=== PATIENT | female | born 1945 | race Caucasian/White ===

== ENCOUNTER 2025-04-24 11:52 | Observation (INO) | payer MEDICARE, OTHER ==
[2025-04-24 13:59] VITALS: BMI 24.0
[2025-04-24 14:44] LABS: #Basophils 0.1 thou/uL (0.0-0.2); #Eosinophils 0.1 thou/uL (0.0-0.7); #Lymphocytes 0.7 thou/uL (1.20-3.40); #Monocytes 0.4 thou/uL (0.11-0.59); #Neutrophils 4.3 thou/uL (1.40-6.50); %Basophils 1.7 % (0.0-1.0); %Eosinophils 1.9 % (0.0-10.0); %Lymphocytes 11.9 % (21.0-51.0); %Monocytes 7.7 % (0.0-10.0); %Neutrophils 76.7 % (42.0-75.0); Hematocrit 18.9 % (36.0-47.0); Hemoglobin 5.7 g/dL (12.0-16.0); Mean Corpuscular Hemoglobin 26.0 pg (27.0-31.0); Mean Corpuscular Volume 86.3 fl (78.0-98.0); Platelet Count 234 10x3/uL (130-400); Red Blood Cell (RBC) Count 2.19 mill/uL (4.20-5.40); White Blood Cell (WBC) Count 5.6 10x3/uL (4.8-10.8)
[2025-04-24 15:01] LABS: ALT (SGPT) Less than 7 U/L (Less than 34); AST (SGOT) 25 U/L (11-34); Albumin 3.4 g/dL (3.1-4.5); Alkaline Phosphatase 217 U/L (40-110); Anion Gap 18 mmol/L (10-20); BUN (Urea Nitrogen) 27 mg/dL (9.8-20.1); Bilirubin, Total 0.9 mg/dL (0.3-1.2); Calc. Creatinine Clearance 55 mL/min (70-130); Calcium 8.5 mg/dL (7.8-10.44); Carbon Dioxide 26 mmol/L (23-31); Chloride 102 mmol/L (98-107); Globulin 3.1 g/dL (2.4-3.5); Glucose 105 mg/dL (83-110); Potassium 2.8 mmol/L (3.5-5.1); Sodium 143 mmol/L (136-145)
[2025-04-24] MEDS ORDERED: Benzonatate 100 MG CAP PO PRN (15:15)
[2025-04-24] MEDS ORDERED: Nitroglycerin 0.4 MG TAB (25 Tab Bottle) SL PRN (15:15)
[2025-04-24] MEDS ORDERED: Senokot 8.6 MG TAB PO PRN (15:15)
[2025-04-24] MEDS ORDERED: Acetaminophen/Codeine 30-300mg Tablet PO PRN (15:22)
[2025-04-24] MEDS ORDERED: Calcium Carbonate 500 MG ChewTAB PO PRN (15:24)
[2025-04-24] MEDS ORDERED: Acetaminophen 325 MG TAB PO PRN (15:24)
[2025-04-24] MEDS: Ferrous Sulfate 325 MG TAB PO SCH ×2 (17:11→20:39)
[2025-04-24] MEDS: Acetaminophen 325 MG TAB PO SCH (17:58)
[2025-04-24] MEDS: diphenhydrAMINE 25 MG CAP PO SCH (17:59)
[2025-04-24] MEDS: Gabapentin 300 MG CAP PO SCH (20:32)
[2025-04-24] MEDS: Apixaban 5 MG TAB PO SCH (20:35)
[2025-04-24] MEDS: Furosemide 40 MG (4 mL) VIAL SLOW IVP SCH (22:40)
[2025-04-25 04:42] LABS: Hematocrit 25.4 % (36.0-47.0); Hemoglobin 8.3 g/dL (12.0-16.0)
[2025-04-25 07:20] LABS: Anion Gap 17 mmol/L (10-20); BUN (Urea Nitrogen) 25 mg/dL (9.8-20.1); Calc. Creatinine Clearance 54 mL/min (70-130); Calcium 8.1 mg/dL (7.8-10.44); Carbon Dioxide 27 mmol/L (23-31); Chloride 103 mmol/L (98-107); Glucose 125 mg/dL (83-110); Potassium 2.7 mmol/L (3.5-5.1); Sodium 144 mmol/L (136-145)
[2025-04-25 07:41] VITALS: TEMP 98.1
[2025-04-25] MEDS: Folic Acid 1 MG TAB PO SCH (09:49)
[2025-04-25] MEDS: Sertraline 100 MG TAB PO SCH (09:50)
[2025-04-25] MEDS: Pantoprazole 40 MG DR.TAB PO SCH (09:50)
[2025-04-25] MEDS: Torsemide 20 MG TAB PO SCH (09:52)
[2025-04-25] MEDS: Vancomycin HCl 750 MG in Sodium Chloride 0.9% 250 ML 250 ML IVPB SCH (10:57)
[2025-04-25 11:36] LABS: Iron 29 ug/dL (50-170); Iron Binding Capacity, Total 265 mcg/dL (265-497)
[2025-04-25 14:42] VITALS: BP 123/76
[2025-04-29] MEDS ORDERED: PNEUMOC 20-VAL CONJ-DIP CRM/PF 0.5 ML SYRINGE IM ONE (09:00)
== END 2025-04-25 13:40 ==
LOC: BURMED 13:16
PROVIDERS: ADMIT Family Medicine; ATTEND Family Medicine
DX: D64.9 Anemia, unspecified (principal); I11.0 Hypertensive heart disease with heart failure; I50.9 Heart failure, unspecified; I33.0 Acute and subacute infective endocarditis; I48.91 Unspecified atrial fibrillation; Z95.0 Presence of cardiac pacemaker; E03.9 Hypothyroidism, unspecified; Z79.82 Long term (current) use of aspirin; Z79.899 Other long term (current) drug therapy
CPT/HCPCS: 36415; 36430; 80048; 80053; 82728; 83540; 83550; 85014; 85018; 85025; 85046; 86850; 86900; 86901; 96374; 96375; G0378; J1940; J3373; J7050; P9016